=== PATIENT | male | born 1990 | race Caucasian/White ===

== ENCOUNTER 2022-04-27 17:02 | Emergency (ER) | payer OTHER ==
[2022-04-27 17:42] VITALS: BP 144/90
[2022-04-27] MEDS: predniSONE 20 MG TABLET PO STA (19:10)
[2022-04-27] MEDS: MELOXICAM 7.5 MG TABLET PO STA (19:10)
--- NOTE | 2022-04-27 19:11 | XRAY Report ---
PROCEDURE: Knee 4 View RT INDICATIONS: Trauma TECHNIQUE: 4 views of the right knee were acquired. COMPARISON: None. FINDINGS: Bones: No acute fractures or dislocations. No suspicious bony lesions. Soft tissues: No joint effusion. No suspicious soft tissue calcifications. Prepatellar soft tissue edema or prepatellar bursal effusion is present. IMPRESSION: 1.Prominent prepatellar soft tissue edema or prepatellar bursal effusion. 2.No acute osseous abnormality. If there is clinical concern or persistent symptoms, additional imagi ng such as repeat radiographs or advanced imaging (e.g. CT, MRI) may be helpful for further evaluatio n. Reviewed by: Mehrdad Lazar MD on 04/27/2022 7:09 PM PDT Approved by: Mehrdad Lazar MD on 04/27/2022 7:09 PM PDT Station ID: [id number]
--- NOTE | 2022-04-27 19:13 | ED Physician Documentation ---
History of Present Illness - Stated complaint Stated Complaint: R KNEE SWELLING - Chief complaint Chief Complaint: Ext Problem - History obtained from History obtained from: Patient - History of Present Illness Timing: How many days ago Pain level max: 6 Pain level now: 4 - Additonal information Additional information: Patient is a 32-year-old male who presents to the emergency department with several days of right knee swelling. 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 No fevers. No chills. No redness. Nothing seems to make this better or worse. He states that his knee pads are old. Review of Systems Constitutional: denies: Fever, Chills Respiratory: denies: Cough Skin: denies: Rash PD PAST MEDICAL HISTORY - Past Medical History Past Medical History: No - Past Surgical History Past Surgical History: No General: Appendectomy - Present Medications Home Medications: Ambulatory Orders Medication Instructions Recorded Confirmed Meloxicam [Mobic] 7.5 mg PO BID PRN #20 tablet 04/27/22 - Allergies Allergies/Adverse Reactions: Allergies Allergy/AdvReac Type Severity Reaction Status Date / Time No Known Drug Allergies Allergy Verified 04/27/22 17:38 - Social History Does the pt smoke?: Yes Smoking Status: Current every day smoker Does the pt drink ETOH?: Yes Does the pt have substance abuse?: No - Immunizations Immunizations are current?: Yes PD ED PE NORMAL - Vitals Vital signs reviewed: Yes - General General: Alert and oriented X 3, No acute distress - HEENT HEENT: Moist mucous membranes - Respiratory Respiratory: No respiratory distress - Derm Derm: Warm and dry - Extremities Extremities: Other (R knee - swelling to the prepatellar bursa. No signs of infection. No erythema. No evidence of septic joint. Full range of motion. Neurovascular intact) - Neuro Neuro: Alert and oriented X 3 Results - Vitals Vitals: Vital Signs - 24 hr 04/27/22 17:39 Temperature 36.4 C L Heart Rate 83 Respiratory 16 Rate Blood Pressure 144/90 H O2 Saturation 98 Oxygen O2 Source Room air - Rads (name of study) R knee xray Radiology: Final report received, EMP read contemporaneously, See rad report PD MEDICAL DECISION MAKING - ED course Complexity details: reviewed results, re-evaluated patient, considered differential, d/w patient ED course: 32-year-old male with a right knee prepatellar bursitus. No evidence of infection. No evidence of septic bursitis. No indication for drainage at this time. We will place him on nonsteroidal anti-inflammatory medication's and a dose of dexamethasone. Neurovascular intact. No acute findings on x-ray other than the soft tissue swelling. Patient counseled regarding signs and symptoms for which I believe an urgent reevaluation would be needed. Patient with good understanding and agreement to plan. Patient comfortable going home at this time. Departure - Departure Disposition: , Self Care Clinical Impression: Prepatellar bursitis Qualifiers: Laterality: right Qualified Code(s): M70.41 - Prepatellar bursitis, right knee Condition: Good Instructions: ED Bursitis Follow-Up: your,doctor in 1 week [Other] Orthopedic Care [Provider Group] - Within 1 week Prescriptions: Meloxicam [Mobic] 7.5 mg PO BID PRN #20 tablet PRN Reason: Pain Comments: Your prescription was sent to [facility] in [place]. Please stay off of your knee is much as possible. Try to avoid kneeling. You should also obtain new kneepads for work. Return if you notice redness to the knee or have fevers/chills. Forms: Activity restrictions Discharge Date/Time: 04/27/22 19:21
== END 2022-04-27 19:21 | disposition home or self-care (01) ==
LOC: ED 17:02
DX: M70.41 Prepatellar bursitis, right knee (principal); F17.200 Nicotine dependence, unspecified, uncomplicated
CPT/HCPCS: 73564; 99282; 99283; A9270; J7512